=== PATIENT | male | born 1975 | race Caucasian/White ===

== ENCOUNTER 2022-09-05 08:19 | Outpatient (CLI) | payer OTHER, SELFPAY ==
--- OUTSIDE RECORDS SUMMARY | 2022-09-05 08:20 | XMS_ITS ---
:1975 Author Care Team Providers Name Role Phone [facility] Primary Care Provider [phone] Allergies Code Code System Name Reaction Severity Status Onset NKDA ? Medications Name Status Start Date Stop Date ? ? atorvastatin 80 mg tablet Active ? Not av ailable hydrocodone 5 mg-acetaminophen 325 mg tablet Completed ? 11/29/2021 levothyroxine 100 mcg tablet Active ? Not available omeprazole 20 mg capsule,delayed release Active ? Not available oxycodone 5 mg tablet Completed ? 04/06/2022 sildenafil 50 mg tablet Active ? Not avai lable TAKE ONE TABLET BY MOUTH DIRECTED ONE HOUR PRIOR TO INTERCOU RSE tamsulosin 0.4 mg capsule Active ? Not av ailable Problems Name Status Onset Date Source ? 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 Procedures Date Name Performed by ? 12/24/2021 Partial Nephrectomy, Robot Assisted Info rmation not available Laparoscopic, with Intra-operative Ultrasound (Surg) ? Orthopedic Surgery Information not avai james Notes: Rt Knee ACLRT shoulder RTCR 03/11/2022 CT, Chest + Abdomen + Pelvis, W/ Contras t Information not available 05/06/2022 CT, Chest + Abdomen + Pelvis, W/ Contras t Information not available 07/20/2022 CT, Chest + Abdomen + Pelvis, W/ Contras t [facility] [address] [place] [address] (Work Place) Results Lab Results Date Name Specimen Result Interpretation Description Value Range Status Address ? 07/18/2022 Urinalysis, ? pH-Status 5.5 ? ? [facility]: [address], [place] ? ? ? Nitrates-Status negative ? ? [facility]: [address], [place] ? ? ? Blood-Status Negative ? ? [facility]: [address], [place] ? ? ? Leuko-Status Negative ? ? [facility]: [address], [place] ? ? ? Specimen Type Voided ? ? [facility]: [address], [place] 12/24/2021 Surgical ? No observation ? ? ? Pathology Study recorded. Past Encounters 07/18/2022 Malignant Tumor of Kidney Joel Chavis MD: [address], [place] [address], Ph. 04/06/2022 Malignant Tumor of Kidney Carlos Alberto Tobin MD: [address], [place] [address], Ph. 01/24/2022 Malignant Tumor of Kidney Carlos Alberto Tobin MD: [address], [place] [address], Ph. 11/29/2021 Renal Mass Joel Chavis MD: [address], [place] [address], Ph. Social History Tobacco Smoking Status Former Smoker Vaccine List Vaccine Type COVID-19, mRNA, LNP-S, PF, 30 mcg/0.3 mL dose (MyPrepApp) 03/05/2021 03/26/2021 influenza, injectable, quadrivalent, pre servative free 10/07/2020 Td (adult), adsorbed 09/01/2000 Tdap 02/22/2011 07/26/2021 Plan of Care Reminders Provider Appointments None recorded. ? ? Lab None recorded. ? ? Referral None recorded. ? ? Procedures None recorded. ? ? Surgeries None recorded. ? ? Imaging None recorded. ? ? Vitals 07/18/2022 03:20PM ESTABLISHED 10 Height Weight BMI 5 ft 10.5 in 200 lbs 28.3 kg/m2 04/06/2022 12:40PM ESTABLISHED 10 Height Weight BMI 5 ft 10.5 in 200 lbs 28.3 kg/m2 01/24/2022 01:30PM POST OP 10 Height Weight BMI 5 ft 10.5 in 200 lbs 28.3 kg/m2 11/29/2021 04:00PM CA TALK Height Weight BMI 5 ft 10.5 in 200 lbs 28.3 kg/m2
--- OUTSIDE RECORDS SUMMARY | 2022-09-05 08:20 | XMS_ITS | Clinical Summary ---
:1975 Author Organization [employer] [facility] [employer] [facility] [place] [address] Care Team Providers Name Role Phone Jacky Bertrand MD Primary Care Provider [phone] Allergies No known active allergies Medications Medication Sig Dispensed Refills Start Date End Date Status Levothyroxine 100 mcg Take 100 mcg by 0 Active cap mouth before breakfast. atorvastatin (LIPITOR) Take 80 mg by 0 Active 80 mg tablet mouth at bedtime. sildenafil citrate Take 50 mg by 0 Active (VIAGRA) 50 mg tablet mouth once daily. Take 30min to 4 hours before sexual activity. Max 100mg/24hr albuterol sulfate Inhale 2 Puffs by 0 Active (PROAIR HFA INHL) mouth every 4 hours if needed. omeprazole (PRILOSEC) Take 20 mg by 0 Active 20 mg Delayed-Release mouth once daily. capsule oxyCODONE (ROXICODONE) Take 1 Tablet (5 15 Tablet 0 12/25/2021 Active 5 mg immediate release mg) by mouth tabletIndications: Left every 6 hours if renal mass needed for Pain (For severe pain.). sennosides-docusate Take 1-4 Tablets 30 Tablet 0 12/25/2021 Active (SENOKOT S) (8.6-50 mg) by mouth 2 times tabletIndications: Left daily if needed renal mass for Constipation. Active Problems Problem Noted Date Reflux esophagitis 01/26/2009 Overview: EGD 01/2009 Flat foot(734) 05/10/2006 Social History Tobacco Use Types Packs/Day Years Used Date Former Smoker Cigarettes 0.5 5 Smokeless Tobacco: Former User Chew Alcohol Use Standard Drinks/Week Comments Yes 0 (1 standard drink = 0.6 oz pure case e very other week-softball alcohol) season Sex Assigned at Date Recorded Not on file Obstetrics History Last Filed Vital Signs Vital Sign Reading Time Taken Comments Blood Pressure 127/83 12/25/2021 8:00 AM [employer] Pulse 71 12/25/2021 8:00 AM [employer] Temperature 36.5 ??C (97.7 ??F) 12/25/2021 8:00 AM [employer] RE[employer] Respiratory Rate 16 12/25/2021 8:00 AM [employer] RE[employer]IR [employer] Oxygen Saturation 94% 12/25/2021 8:00 AM TR[employer] REPAIR [employer]ER Inhaled Oxygen Concentration - - Weight 88.9 kg (196 lb) 12/24/2021 10:15 AM [employer] RE[employer] Height 179.1 cm (5' 10.5) 12/24/2021 10:15 AM [employer] RE[employer] Body Mass Index 27.73 12/24/2021 10:15 AM [employer] RE[employer]ER Plan of Treatment Health Maintenance Due Date Last Done Comments Tdap 1984 Depression screening for age 12+ 1985 BMI (ht and wt on same day) for age 18+ 1991 Hepatitis C screening for age 18-79 1991 Tetanus booster 1993 Colonoscopy through age 75 2018 Lipids for age 45-75 2018 COVID-19 vaccine series (3 - Booster for 08/26/2021 021, 03/05/2021 Pfizer series) Influenza for age 9-49 07/28/2022 Medical Devices Implanted Type [employer] Device Shelf Model / Identifier Expiration Serial / Date Lot Ancr Sut 4.75x19.1mm Speedbridge Swivelock Biocomposite - [id number] Right: [employer] 07/27/2021 [id number] / Implanted: Qty: 1 on 01/14/2020 by Pierre Lowry MD at [facility] / [id number] Results Not on filefrom Last 3 Months Additional Health Concerns Infection Onset Date Last Indicated COVID HistoryComment: COVID+ test result dates: 12/22/2021 12/22/2021 11/08/21, home test Patient met COVID clearance criteria on 11/19/21. For evaluation of subsequent COVID+ results, refer to the algorithm on the AKN: Isolation Precaution Recommendations for Patients with History of COVID-19 Infection. Insurance Payer Benefit Plan / Subscriber ID Effective Dates Phone Addre ss Type Group PREFERRED ONE JORGE LTLELIA BROOKS [id number] 2018-Present [address] [address] [place] [address] Advance Directives Latest Code Status on File Code Status Date Activated Date Inactivated Comments Full Code 12/24/2021 10:06 AM 12/25/2021 3:02 PM Code Status Discussion: Unable to Assess Preferences, Provid er to review later Full Code 01/14/2020 6:03 AM 01/14/2020 2:06 PM Care Teams Jewelry Cutter Relationship Specialty Start Date End Date Jacky Bertrand MD PCP - General Family Practice 12/16/[address] [place] [address] [address]
--- OUTSIDE RECORDS SUMMARY | 2022-09-05 08:21 | XMS_ITS | Encounter Summary ---
:1975 Author Care Team Providers Name Role Phone [facility] Primary Care Provider [phone] Reason for Visit Malignant tumor of kidney Assessment and Plan 1. Malignant tumor of kidney ? urinalysis, dipstick Discussion Note no sign of recurrence on CT. will plan next follow up in Nov [address] ch/abd/pelvis with contrast. probably go to CXR and renal U/S follow up after that to limit cumulative radiation over time. Patient educational handouts: No information available. Plan of Care Reminders Provider Appointments Established 12/16/2022 1:30PM Joel Chavis MD ? Ct Scan 12/16/2022 11:00AM Ct Lab Urinalysis, Dipstick 07/18/2022 [facility] Referral None recorded. ? ? Procedures None recorded. ? ? Surgeries None recorded. ? ? Imaging None recorded. ? ? Medications Name Start Date ? ? atorvastatin 80 mg tablet ? TAKE 1 TABLET BY MOUTH AT BEDTIME levothyroxine 100 mcg tablet ? TAKE 1 TABLET BY MOUTH DAILY omeprazole 20 mg capsule,delayed release ? TAKE 1 CAPSULE BY MOUTH DAILY sildenafil 50 mg tablet ? TAKE ONE TABLET BY MOUTH DIRECTED ONE HOUR PRIOR T O INTERCOURSE tamsulosin 0.4 mg capsule ? Medications Administered None recorded. Vitals Height Weight BMI 5 ft 10.5 in 200 lbs 28.3 kg/m2 Results Lab Results Date Name Specimen Result Interpretation Description Value Range Status Address ? 07/18/2022 Urinalysis, ? pH-Status 5.5 ? ? [facility]: [address], [place] ? ? ? Nitrates-Statu negative ? ? [facility]: [address], [place] ? ? ? Blood-Status Negative ? ? [facility]: [address], [place] ? ? ? Leuko-Status Negative ? ? [facility]: [address], [place] ? ? ? Specimen Type Voided ? ? [facility] [address], [place] Allergies Code Code System Name Reaction Severity Onset NKDA ? ? ? Problems Name Status Onset Date Source ? 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 Procedures Date Name Performed by ? 12/24/2021 Partial Nephrectomy, Robot Assisted Info rmation not available Laparoscopic, with Intra-operative Ultra sound (Surg) ? Orthopedic Surgery Information not avai lable Notes: Rt Knee ACLRT shoulder RTCR Vaccine List Vaccine Type COVID-19, mRNA, LNP-S, PF, 30 mcg/0.3 mL dose (Microblr) 03/05/2021 03/26/2021 influenza, injectable, quadrivalent, pre servative free 10/07/2020 Td (adult), adsorbed 09/01/2000 Tdap 02/22/2011 07/26/2021 Social History Tobacco Smoking Status Former Smoker What was the date of your most recent tobacco 07/18/2022 screening? Do you or have you ever used any other forms of N tobacco or nicotine? When did you quit smoking? 1-5yearssincelastcigarette How many years have you smoked tobacco? 13 Family History Relation Problem Onset Age of Age Notes Father No current problems or (No Information) N/A ( No Notes) disability Mother No current problems or (No Information) N/A ( No Notes) disability Functional Status Unknown. Past Encounters 07/18/2022 Malignant Tumor of Kidney Joel Chavis MD: [address], [place] [address], Ph. History of Present Illness Note: <div>7 months out from left partial nephrectomy follow up CT last wekk no sign of recurrence in chest/abd/pelvis. UA clear today. no pain in area, normal activity without problems. </div> Review of Systems ? Comprehensive General Adult ROS Reported By: Patient Constitutional: Constitutional: no fever, no chills Eyes: Eyes: no dry eyes, no vision change, no irritation Endocrine: Endocrine: no fatigue, no in creased thirst Cardiovascular: Cardiovascular: no chest mary n, no palpitations Integumentary: Skin: no rashes, no change i n skin color Respiratory: Respiratory: no wheezing, no cough, no shortness of breath Genitourinary: Genitourinary: no incontinen ce, no difficulty urinating Physical Exam None recorded.
[2022-09-05 13:47] LABS: Albumin* 4.9 g/dL (3.3-5.0); Chloride* 102 mmol/L (96-114); Sodium* 140 mmol/L (135-149)
[2022-09-05 13:48] LABS: Potassium* 5.1 mmol/L (3.6-5.1)
[2022-09-05 13:49] LABS: Cholesterol* 193 mg/dL (90-199)
[2022-09-05 13:50] LABS: Alanine Aminotransferase* 37 U/L (4-50); Alkaline Phosphatase* 105 U/L (40-150); Aspartate Amino Transferase* 34 U/L (12-35); Bilirubin Total* 0.6 mg/dL (0.1-1.5); Blood Urea Nitrogen* 13 mg/dL (5-24); Carbon Dioxide* 26 mmol/L (20-32); Estimated Glomerular Filt Rate 92 ml/min; Glucose* 114 mg/dL (60-115); Total Protein* 7.4 g/dL (6.0-8.3); Triglycerides* 161 mg/dL (40-149)
[2022-09-05 13:51] LABS: Calcium* 10.1 mg/dL (8.4-10.6); HDL Cholesterol* 59 mg/dL (>=40); LDL Cholesterol Calculated 102 mg/dL (<100)
[2022-09-05 14:28] LABS: Hepatitis C Virus Antibody* Negative (Negative)
== END 2022-09-05 08:20 | disposition home or self-care (01) ==
PROVIDERS: PCP Family Medicine; Visit Provider Family Medicine
DX: Z00.00 Encounter for general adult medical examination without abnormal findings (principal); E03.9 Hypothyroidism, unspecified; E78.5 Hyperlipidemia, unspecified; R03.0 Elevated blood-pressure reading, without diagnosis of hypertension; Z11.59 Encounter for screening for other viral diseases
CPT/HCPCS: 80053; 80061; 84443; 86803

== ENCOUNTER 2023-01-09 14:00 | Outpatient (CLI) | payer OTHER, SELFPAY ==
[2023-01-09 22:28] LABS: Chloride* 104 mmol/L (96-114)
[2023-01-09 22:29] LABS: Albumin* 4.5 g/dL (3.3-5.0); Potassium* 4.5 mmol/L (3.6-5.1); Sodium* 141 mmol/L (135-149)
[2023-01-09 22:32] LABS: Alanine Aminotransferase* 36 U/L (4-50); Alkaline Phosphatase* 95 U/L (40-150); Aspartate Amino Transferase* 27 U/L (12-35); Bilirubin Total* 0.5 mg/dL (0.1-1.5); Blood Urea Nitrogen* 15 mg/dL (5-24); Calcium* 9.7 mg/dL (8.4-10.6); Carbon Dioxide* 26 mmol/L (20-32); Estimated Glomerular Filt Rate 92 ml/min; Total Protein* 7.4 g/dL (6.0-8.3)
[2023-01-09 22:48] LABS: Glucose* 109 mg/dL (60-115)
== END 2023-01-09 14:01 | disposition home or self-care (01) ==
LOC: FRMREF 14:00
PROVIDERS: PCP Family Medicine; Visit Provider Family Medicine
DX: B35.1 Tinea unguium (principal)
CPT/HCPCS: 80053

== ENCOUNTER 2023-10-23 15:36 | Outpatient (CLI) | payer OTHER, SELFPAY | END 2023-10-23 15:37 | disposition home or self-care (01) | PROVIDERS: PCP Family Medicine; Visit Provider Family Medicine | DX: Z00.00 Encounter for general adult medical examination without abnormal findings (principal); E78.5 Hyperlipidemia, unspecified; E03.9 Hypothyroidism, unspecified; M10.9 Gout, unspecified; Z13.6 Encounter for screening for cardiovascular disorders; Z11.59 Encounter for screening for other viral diseases | CPT/HCPCS: 80053; 80061; 84153; 84443; 86803 ==

== ENCOUNTER 2025-01-24 12:56 | Outpatient (CLI) | payer BC, SELFPAY | END 2025-01-24 12:57 | disposition home or self-care (01) | LOC: FRMREF 12:57 | PROVIDERS: PCP Family Medicine; Visit Provider Family Medicine | DX: E78.5 Hyperlipidemia, unspecified (principal); E03.9 Hypothyroidism, unspecified; Z12.5 Encounter for screening for malignant neoplasm of prostate | CPT/HCPCS: 80053; 80061; 84443; G0103 ==

== ENCOUNTER 2025-05-29 13:49 | Outpatient (CLI) | payer BC, SELFPAY | END 2025-05-29 13:50 | disposition home or self-care (01) | PROVIDERS: PCP Family Medicine; Visit Provider Family Medicine | DX: E78.5 Hyperlipidemia, unspecified (principal); E03.9 Hypothyroidism, unspecified; Z01.818 Encounter for other preprocedural examination | CPT/HCPCS: 80053; 85610 ==